=== PATIENT | female | born 1985 | race Caucasian/White ===

== ENCOUNTER 2018-04-20 21:16 | Emergency (ER) | payer MEDICAID ==
[~2018-04-20] VITALS: Ht 160 cm; Wt 70.8 kg
[2018-04-20 22:10] VITALS: BP 137/75
== END 2018-04-20 23:11 | disposition left against medical advice (07) ==
LOC: ED 21:16
DX: Z53.21 Procedure and treatment not carried out due to patient leaving prior to being seen by health care provider (principal)

== ENCOUNTER 2018-04-21 00:01 | Emergency (ER) | payer MEDICAID, OTHER | END 2018-04-21 01:08 | disposition home or self-care (01) | LOC: ED 00:01 ==

== ENCOUNTER 2019-01-06 09:07 | Emergency (ER) | payer MEDICAID ==
[~2019-01-06] VITALS: Ht 160 cm; Wt 63.5 kg
[2019-01-06 09:10] VITALS: Ht 160 cm; Wt 63.5 kg
[2019-01-06 11:39] VITALS: BP 100/65
== END 2019-01-06 11:39 | disposition home or self-care (01) ==
LOC: ED 09:07
DX: L03.115 Cellulitis of right lower limb (principal); F32.9 Major depressive disorder, single episode, unspecified
CPT/HCPCS: Q0092

== ENCOUNTER 2019-04-09 02:37 | Emergency (ER) | payer MEDICAID ==
[~2019-04-09] VITALS: Ht 160 cm; Wt 78.0 kg
[2019-04-09 02:56] VITALS: Ht 160 cm; Wt 78.0 kg
[2019-04-09 06:33] VITALS: BP 106/69
== END 2019-04-09 07:28 | disposition home or self-care (01) ==
LOC: ED 02:37
DX: L03.114 Cellulitis of left upper limb (principal); R05 Cough
CPT/HCPCS: J0696; J1885